=== PATIENT | female | born 1990 | race Caucasian/White ===

== ENCOUNTER → 2020-08-03 | Outpatient (CLI) | payer OTHER, SELFPAY ==
[2020-08-08 14:13] LABS: HPV APTIMA, High Risk Negative (Negative)
== END | disposition home or self-care (01) ==
PROVIDERS: PCP Family Medicine; Referring Provider Obstetrics & Gynecology; Visit Provider Obstetrics & Gynecology
DX: Z12.4 Encounter for screening for malignant neoplasm of cervix (principal)
CPT/HCPCS: 87624; 88175; G0145

== ENCOUNTER → 2021-01-19 12:12 | Outpatient (CLI) | payer OTHER, SELFPAY ==
[2021-01-25 12:08] LABS: Alternaria alternata <0.10 kU/L (Class 0); Aspergillus fumigatus <0.10 kU/L (Class 0); Beef <0.10 kU/L (Class 0); Bermuda Grass <0.10 kU/L (Class 0); Bluegrass, Kentucky 0.53 kU/L (Class I); Cat Hair/Dander, Standard 0.13 kU/L (Class 0/I); Cedar, Mountain <0.10 kU/L (Class 0); Cladosporium herbarum <0.10 kU/L (Class 0); Cockroach, American <0.10 kU/L (Class 0); Corn <0.10 kU/L (Class 0); Dog Epithelia <0.10 kU/L (Class 0); Egg, Whole 0.27 kU/L (Class 0/I); Elm, American White <0.10 kU/L (Class 0); Hazelnut Tree <0.10 kU/L (Class 0); Hickory, White <0.10 kU/L (Class 0); Johnson Grass <0.10 kU/L (Class 0); Maple/Box Elder <0.10 kU/L (Class 0); Milk (Cow) <0.10 kU/L (Class 0); Mucor racemosus <0.10 kU/L (Class 0); Mugwort 0.23 kU/L (Class 0/I); Mulberry, White <0.10 kU/L (Class 0); Nettle <0.10 kU/L (Class 0); Oak, White <0.10 kU/L (Class 0); Peanut <0.10 kU/L (Class 0); Penicillium chrysogen <0.10 kU/L (Class 0); Pigweed, Rough <0.10 kU/L (Class 0); Plantain, English <0.10 kU/L (Class 0); Pork <0.10 kU/L (Class 0); Sheep Sorrel(Dock) <0.10 kU/L (Class 0); Soybean <0.10 kU/L (Class 0); Stemphylium herbarum <0.10 kU/L (Class 0); Sweet Gum <0.10 kU/L (Class 0); Sycamore, American <0.10 kU/L (Class 0); Wheat <0.10 kU/L (Class 0)
[2021-01-25 12:16] LABS: Chocolate <0.10 kU/L (Class 0)
== END ==
PROVIDERS: PCP Family Medicine; Referring Provider Family Medicine; Visit Provider Family Medicine
DX: L50.9 Urticaria, unspecified (principal)
CPT/HCPCS: 36415; 86003; 86005

== ENCOUNTER → 2021-01-29 14:11 | Outpatient (CLI) | payer OTHER, SELFPAY ==
[2021-01-29 13:22] VITALS: BMI 23.8
[2021-01-29 15:32] LABS: NATERA MAILED SPECIMEN
[2021-01-29 17:30] LABS: Amphetamine Urine VISTA NEGATIVE (<1000 ng/mL); Barbiturate Urine VISTA NEGATIVE (< 200 ng/mL); Benzodiazepine Urine VISTA NEGATIVE (< 200 ng/mL); Cocaine Urine VISTA NEGATIVE (< 300 ng/mL); Ecstacy Urine VISTA NEGATIVE (< 500 ng/mL); Methadone Urine VISTA NEGATIVE (< 300 ng/mL); PCP Urine VISTA NEGATIVE (< 25 ng/mL); THC Urine VISTA NEGATIVE (< 50 ng/mL); Vista UDS pH Range 6
[2021-02-01 03:06] LABS: Chlamydia By Nucleic Acid AMP Negative (Negative)
[2021-02-01 14:22] LABS: Gonococcus By Nucleic Acid AMP Negative (Negative)
== END ==
PROVIDERS: PCP Family Medicine; Referring Provider Obstetrics & Gynecology; Visit Provider Obstetrics & Gynecology
DX: Z34.81 Encounter for supervision of other normal pregnancy, first trimester (principal); Z11.3 Encounter for screening for infections with a predominantly sexual mode of transmission
CPT/HCPCS: 36415; 80307; 87086; 87088; 87491; 87591

== ENCOUNTER → 2021-04-16 16:49 | Outpatient (CLI) | payer OTHER, SELFPAY ==
[2021-04-16 17:07] LABS: Absolute Lymphocyte Count 2.43 X10^3/uL (0.83-4.51); Absolute Neutrophil Count 7.7 X10^3/uL (2.0-7.7); Basophil# 0.04 X10^3/uL; Basophil% 0.4 % (0-1); Eosinophil# 0.27 X10^3/uL; Eosinophils% 2.5 % (0-5); Hemoglobin 11.8 g/dL (12.0-15.0); Lymphocyte # 2.43 X10^3/ul (0.83-4.51); Lymphocyte % 22.1 % (19-41); Mean Corp Hgb Conc 32.8 g/dL (32-36); Mean Corpuscular Hgb 29.8 pg (27.0-32.0); Mean Corpuscular Volume 90.9 fL (81-99); Mean Platelet Vol. 10.4 fl (6.2-12.0); Monocyte# 0.49 X10^3/uL; Monocyte% 4.4 % (0-10); NRBC Flagged by Analyzer 0 % (0-5); Neutrophil # 7.72 X10^3/uL (2.7-7.7); Platelet Count 220 K/mm3 (150-450); RBC Distribution Width CV 13.2 % (11.6-14.6); RBC Distribution Width SD 43.8 fl (35.1-43.9); Red Blood Count 3.96 M/mm3 (4.2-5.4)
[2021-04-16 21:30] LABS: Chlamydia Trachomatis by PCR Negative (Negative); Neisserai gonorrhoeae by PCR Negative (Negative); Probe Check PASS; Sample Adequacy Control PASS; Specimen Processing Control PASS
[2021-04-17 09:21] LABS: HIV - WCH Non-Reactive (Nonreactive); Hepatitis B Surface Antigen Non-Reactive (Nonreactive); Hepatitis C Antibody Non-Reactive (Nonreactive); Rubella IgG Reactive (Nonreactive); Syphilis Antibodies Non-reactive
== END ==
PROVIDERS: PCP Family Medicine; Referring Provider Obstetrics & Gynecology; Visit Provider Obstetrics & Gynecology
DX: Z34.90 Encounter for supervision of normal pregnancy, unspecified, unspecified trimester (principal)
CPT/HCPCS: 36415; 85025; 86703; 86762; 86780; 86803; 86850; 86900; 86901; 87340; 87491; 87591

== ENCOUNTER → 2021-06-06 12:52 | Outpatient (CLI) | payer OTHER, SELFPAY ==
[2021-06-06 13:22] LABS: Absolute Neutrophil Count 11.4 X10^3/uL (2.0-7.7); Basophil# 0.05 X10^3/uL; Basophil% 0.4 % (0-1); Eosinophil# 0.32 X10^3/uL; Eosinophils% 2.3 % (0-5); Hematocrit 33.8 % (37-47); Hemoglobin 11.4 g/dL (12.0-15.0); Lymphocyte % 12.7 % (19-41); Mean Corp Hgb Conc 33.7 g/dL (32-36); Mean Corpuscular Hgb 30.6 pg (27.0-32.0); Mean Corpuscular Volume 90.6 fL (81-99); Mean Platelet Vol. 10.1 fl (6.2-12.0); Monocyte# 0.48 X10^3/uL; Monocyte% 3.4 % (0-10); NRBC Flagged by Analyzer 0 % (0-5); Neutrophil # 11.38 X10^3/uL (2.7-7.7); Neutrophil % 80.4 % (47-70); Platelet Count 212 K/mm3 (150-450); RBC Distribution Width CV 12.4 % (11.6-14.6); RBC Distribution Width SD 40.9 fl (35.1-43.9); Red Blood Count 3.73 M/mm3 (4.2-5.4); White Blood Count 14.1 K/mm3 (4.4-11.0)
[2021-06-06 13:42] LABS: Glucose Challenge Gest 1H 50g 130 mg/dL (70-140)
== END ==
PROVIDERS: PCP Family Medicine; Referring Provider Obstetrics & Gynecology; Visit Provider Obstetrics & Gynecology
DX: Z34.90 Encounter for supervision of normal pregnancy, unspecified, unspecified trimester (principal); Z13.1 Encounter for screening for diabetes mellitus
CPT/HCPCS: 36415; 82950; 85025

== ENCOUNTER → 2021-07-25 08:58 | Outpatient (CLI) | payer OTHER, SELFPAY ==
--- NOTE | 2021-07-25 09:02 | US_ITS ---
STUDY: SECOND AND THIRD TRIMESTER OBSTETRICAL ULTRASOUND REASON FOR EXAM: Female, 31 years old growth LMP: 11/12/2020. TECHNIQUE: Transabdominal TECHNICAL QUALITY: Adequate. PRIOR ULTRASOUND: None. FINDINGS: There is a single intrauterine fetus. The fetus is in a cephalic presentation. There is demonstrated cardiac activity with a heart rate of 127 bpm. There is a normal amniotic fluid volume. The largest amniotic fluid pocket measures 3.2 cm. The amniotic fluid index (ISABELA) is 9.9 cm. The placenta is anterior in location and is not low lying. There are Grade 1 placental changes. The cervix measures 3.2 cm in length. The adnexal regions are not visualized. BIOMETRY: BPD: 8.43 cm: 33 weeks, 6 days HC: 31.93 cm: 35 weeks, 6 days AC: 33.11 cm: 37 weeks, 0 days FL: 7.06 cm: 37 weeks, 1 days CI: 76% FL/BPD: 84% FL/HC: FL/AC: 21% HC/AC: 0.96 age by current US: 35 weeks, 4 days. ALYSON by current US: 08/25/2021. Estimated weight: 2921 grams, +/- 438 grams, 52 %. Age by LMP: 36 weeks, 3 days. ALYSON by LMP: 08/19/2021. US/OB Limited With Biometrics IMPRESSION: Single live intrauterine gestation with a mean gestational age of 35 weeks and 4 days. Electronically Signed: Chris Duarte MD at 15:33 EST , Service support ,
== END ==
PROVIDERS: PCP Family Medicine; Referring Provider Obstetrics & Gynecology; Visit Provider Obstetrics & Gynecology
DX: O26.843 Uterine size-date discrepancy, third trimester (principal); Z3A.35 35 weeks gestation of pregnancy
CPT/HCPCS: 76816

== ENCOUNTER → 2021-07-27 | Outpatient (CLI) | payer OTHER, SELFPAY | END | disposition home or self-care (01) | LOC: LABSPEC 16:01 | PROVIDERS: PCP Family Medicine; Visit Provider Obstetrics & Gynecology | DX: Z34.80 Encounter for supervision of other normal pregnancy, unspecified trimester (principal) | CPT/HCPCS: 87081 ==

== ENCOUNTER 2021-08-21 22:35 | Inpatient (IN) | payer OTHER, SELFPAY ==
[2021-08-21 22:14] VITALS: BP 132/80; PULSE 86; TEMP 35.1
[2021-08-21 22:19] VITALS: BMI 28.4
[2021-08-21 23:45] LABS: Absolute Lymphocyte Count 2.91 X10^3/uL (0.83-4.51); Absolute Neutrophil Count 8.8 X10^3/uL (2.0-7.7); Basophil# 0.06 X10^3/uL; Basophil% 0.5 % (0-1); Eosinophil# 0.11 X10^3/uL; Eosinophils% 0.9 % (0-5); Hematocrit 34.3 % (37-47); Hemoglobin 11.2 g/dL (12.0-15.0); Lymphocyte # 2.91 X10^3/ul (0.83-4.51); Lymphocyte % 22.5 % (19-41); Mean Corp Hgb Conc 32.7 g/dL (32-36); Mean Corpuscular Hgb 28.3 pg (27.0-32.0); Mean Corpuscular Volume 86.6 fL (81-99); Mean Platelet Vol. 12.4 fl (6.2-12.0); Monocyte# 0.78 X10^3/uL; NRBC Flagged by Analyzer 0 % (0-5); Neutrophil # 8.78 X10^3/uL (2.7-7.7); Neutrophil % 67.9 % (47-70); Platelet Count 243 K/mm3 (150-450); RBC Distribution Width CV 12.6 % (11.6-14.6); RBC Distribution Width SD 39.5 fl (35.1-43.9); Red Blood Count 3.96 M/mm3 (4.2-5.4); White Blood Count 12.9 K/mm3 (4.4-11.0)
[2021-08-21 23:51] VITALS: PULSE 97; O2SAT 99
[2021-08-21 23:56] VITALS: BP 123/72; PULSE 96
[2021-08-22] VITALS (22 sets, daily range): BP systolic 108–140; BP diastolic 63–89; PULSE 73–100; RESP 16–18; TEMP 36.2–36.7; O2SAT 96–98
[2021-08-22] MEDS: Acetaminophen 500 MG Tablet PO (01:46)
[2021-08-22] MEDS: Ondansetron 4 MG/2 ML Vial IV (03:25)
[2021-08-22] MEDS: 0.9% Saline Lock 10 ML Syringe IV (03:25)
[2021-08-22] MEDS: Oxytocin 30 units/NS 500 ml 30 UNITS/500 ML IV.SOLN 334 UNITS IV (03:57)
--- NOTE | 2021-08-22 04:02 | HP.PCM.OB_ITS ---
HPI - General General Date of Admission: 08/21/21 HPI Narrative ELVIN LIRA, is a 31 F who presents IAL with regualr ctx no vb lof good fm. Maternal Data Information ALYSON Calculator Estimated Delivery Date Method Current WG Current Estimate 08/19/21 Ultrasound #1 40w 3d Other Estimates 08/28/21 LMP (Certain) 39w 1d PFSH PFS Medical History (Updated 08/22/21 @ 04:[address] Augustina Capone MD) Headache Home Medications calcium citrate 315 mg calcium-vitamin D3 6.25 mcg (250 unit) tablet 1 tab PO DAILY 05/15/21 [History Last Taken 08/17/20] magnesium oxide 500 mg capsule 500 mg PO DAILY 05/15/21 [History Last Taken Unknown] Allergy/AdvReac Type Severity Reaction Status Date / Time No Known Allergies Allergy Verified 08/13/21 14:06 Family History Mother Hypertension Father Hypertension Social History adopted: No household members: spouse and children number of children: 2 current occupational status: employed current occupation: [employer] pets and animals: No Smoking Status: Never smoker alcohol intake: never substance use type: does not use caffeine: Yes frequency: 5-6 times per week seatbelt use: always do you feel safe at home: Yes additional social history: - Kristof Patient and are researchers at [employer] History 3 Elective abortions Hx Para 2 Spontaneous abortions Hx # Term Pregnancies Ectopic pregnancies Hx # Pregnancies Multiple births # of living children Past Pregnancies Del. Date Name GA/Weeks Outcome Route Bth Weight Infant Gen Labor Lgth Anesthesia Del Locat Provider FOB 07/22/16 Kathie live - full term 3.2kg Female 30 n one [place] 06/08/18 Nishant 39 live - full term 3.5 kg Male 9 hr no ne [place] Visit Details Expected Delivery Route/Plan discussed IOL by 41-42 Labor Preferences- CB/BF classes: no labor support person: Zach labor intervention preferences: Very concerned with episiotomy:last delivery became infected. Wants oil on perineum. pain management options preferred: epidural if needed. None with last 2 deliveries cut cord/dad catch: yes : yes PP control planned: discussed discussed possible routes of delivery and associated risks: [] special requests: [] Plans covid status: vaccinated flu vaccine: given tdap vaccine: given rhogam: na LARC form signed: yes Problem list reviewed and updated with the most current plan of care details and appropriate orders placed. Relevant counseling for the gestational age provided. Continue routine care and follow up unless otherwise noted in visit notes/problem list details OB Flowsheet Initial Weight: 150 lb Date -?-?-?-?-?-?-?-?-?-?-?-?- EGA Weight BP Urine Prot -?-?-?-?-?-?-?-?-?-?-?-?- Glucose FHR FuHt Pres Dilation -?-?-?-?-?-?-?-?-?-?-?-?- Effaced St Visit Note 01/29/21 -?-?-?-?-?-?-?-?-?-?-?-?- 11w 1d 152 lb (+2 lb) 126/82 -?-?-?-?-?-?-?-?-?-?-?-?- 175 -?-?-?-?-?-?-?-?-?-?-?-?- SM- CRL 3.75 NOT cons with LMP 02/28/21 -?-?-?-?-?-?-?-?-?-?-?-?- 15w 3d 156 lb 4 oz (+6 lb 4 oz) 126/70 Negative -?-?-?-?-?-?-?-?-?-?-?-?- Negative 150 -?-?-?-?-?-?-?-?-?-?-?-?- GP - no cramping or bleeding. Going [place] visit family for at least 4 weeks. Has anatomy scheduled with old at home in case does not come back in time. Will bring records back. 04/16/21 -?-?-?-?-?-?-?-?-?-?-?-?- 22w 1d 104/82 -?-?-?-?-?-?-?-?-?-?-?-?- 150 -?-?-?-?-?-?-?-?-?-?-?-?- SM- had anatomy scan in [facility] will try and obtain report, all normal anatomy per patient. 05/15/21 -?-?-?-?-?-?-?-?-?-?-?-?- 26w 2d 169 lb (+19 lb) 112/78 Negative -?-?-?-?-?-?-?-?-?-?-?-?- Negative 140 -?-?-?-?-?-?-?-?-?-?-?-?- SM- no vb wendy phillips had anatomy us nl in [facility], report will be scanned in but in different language 06/06/21 -?-?-?-?-?-?-?-?-?-?-?-?- 29w 3d 169 lb 4 oz (+19 lb 4 oz) 118/76 Negative -?-?-?-?-?-?-?-?-?-?-?-?- Negative 146 29 -?-?-?-?-?-?-?-?-?-?-?-?- MH-No VB, LOF. G ood FM. 28 wk labs. Has cold sx today/neg covid. Declines tdap and flu vaccines today but will consider for next visit 06/22/21 -?-?-?-?-?-?-?-?-?-?-?-?- 31w 5d 170 lb (+20 lb) 104/89 -?-?-?-?-?-?-?-?-?-?-?-?- 140 32 -?-?-?-?-?-?-?-?-?-?-?-?- SM- no vb lof go od fm no reuglar ctx 07/03/21 -?-?-?-?-?-?-?-?-?-?-?-?- 33w 2d 173 lb (+23 lb) 120/84 120/84 Negative -?-?-?-?-?-?-?-?-?-?-?-?- Negative 147 32 -?-?-?-?-?-?-?-?-?-?-?-?- MH-No VB, LOF. G ood FM. Tdap and flu vaccines given. 07/19/21 -?-?-?-?-?-?-?-?-?-?-?-?- 35w 4d 177 lb 4 oz (+27 lb 4 oz) 128/88 Negative -?-?-?-?-?-?-?-?-?-?-?-?- Negative 140 36 -?-?-?-?-?-?-?-?-?-?-?-?- SM- no vb lof go od fm no reg ctx 07/27/21 -?-?-?-?-?-?-?-?-?-?-?-?- 36w 5d 181 lb 4 oz (+31 lb 4 oz) 116/68 Negative -?-?-?-?-?-?-?-?-?-?-?-?- Negative 145 32 -?-?-?-?-?-?-?-?-?-?-?-?- JV- ultrasound t his week showed growth 55th% and isabela 10. will reassess next visit and if still measures small will do office ISABELA. 08/03/21 -?-?-?-?-?-?--?-?-?-?-?-?- 37w 5d 180 lb (+30 lb) 122/60 Negative -?-?-?-?-?-?-?-?-?-?-?-?- Negative 140 35 -?-?-?-?-?-?-?-?-?-?-?-?- SM- no vb lof go od fm no regular ctx 08/09/21 -?-?-?-?-?-?-?-?-?-?-?-?- 38w 4d 184 lb 6 oz (+34 lb 6 oz) Negative -?-?-?-?-?-?-?-?-?-?-?-?- Negative 142 38 -?-?-?-?-?-?-?-?-?-?-?-?- JV- no lof, vagi nal bleeding, or dec fm. GBS neg. JV- no lof, vaginal bleeding , or dec fm. GBS neg. declines vaginal exam 08/13/21 -?-?-?-?-?-?-?-?-?-?-?-?- 39w 1d 183 lb (+33 lb) 118/66 Negative -?-?-?-?-?-?-?-?-?-?-?-?- Negative 140 39 -?-?-?-?-?-?-?-?-?-?-?-?- SM- no vb lof go od fm no reuglar ctx 08/21/21 -?-?-?-?-?-?-?-?-?-?-?-?- 40w 2d 181 lb 6 oz (+31 lb 6 oz) 132/80 123/72 122/74 115/74 126/82 140/89 -?-?-?-?-?-?-?-?-?-?-?-?- -?-?-?-?-?-?-?-?-?-?-?-?- NST FHR Rate Baby A Baseline: 140 Variability:: Moderate Accelerations:: 15 x 15 Decelerations:: None NST Reactive:: Yes FHR Category:: Category I Uterine Activity:: q3-5 ROS Constitutional Constitutional: Reports systems reviewed and no addt'l complaints, except as documented ENT HEENT: Reports systems reviewed and no addt'l complaints, except as documented Cardiovascular Cardiovascular: Reports systems reviewed and no addt'l complaints, except as documented Respiratory/Chest Respiratory/Chest: Reports systems reviewed and no addt'l complaints, except as documented Gastrointestinal Gastrointestinal: Reports systems reviewed and no addt'l complaints, except as documented and nausea; Denies abdominal pain Genitourinary Genitourinary: Reports systems reviewed and no addt'l complaints, except as documented, contractions Details: present and frequency (regular ) and movement Details: present Musculoskeletal Musculoskeletal: Reports systems reviewed and no addt'l complaints, except as documented Integumentary Integumentary: Reports as per HPI Neurologic Neurologic: Reports systems reviewed and no addt'l complaints, except as documented Endocrine Endocrinology: Reports systems reviewed and no addt'l complaints, except as documented Vital Signs Vital Signs Vital Signs: 08/21/21 22:14 08/21/21 23:51 08/21/21 23:56 Temperature 95.2 F L Pulse Rate 86 97 96 Blood Pressure 132/80 H 123/72 H BP Systolic 132 123 BP Diastolic 80 72 Pulse Ox 99 08/22/21 00:21 08/22/21 00:51 08/22/21 00:54 Temperature 97.2 F L Pulse Rate 100 73 73 Blood Pressure 122/74 H BP Systolic 122 BP Diastolic 74 Pulse Ox 97 08/22/21 01:24 08/22/21 02:00 08/22/21 02:51 Temperature 98.1 F Pulse Rate 100 100 98 Blood Pressure 115/74 126/82 H BP Systolic 115 126 BP Diastolic 74 82 Pulse Ox 98 08/22/21 03:26 08/22/21 04:02 Temperature Pulse Rate 92 96 Blood Pressure 140/89 H BP Systolic 140 BP Diastolic 89 Pulse Ox 96 Weight Weight: 181 lb 6 oz Body Mass Index (BMI) 28.4 Physical Exam Const alert, oriented x3 and healthy appearing Constitutional Narrative: uncomfortable with contractions HEENT normocephalic and moist oral mucous membranes Head and Scalp: atraumatic Neck full ROM, no lymphadenopathy, supple and thyroid normal General: trachea midline Thyroid: thyroid normal Lymph Lymphatic: no lymphadenopathy noted Chest inspection of chest normal Resp normal respiratory effort Cardio regular rate GI normal to inspection, nondistended, normoactive bowel sounds, soft to palpation and non-tender Inspection: gravid external exam normal Bimanual Exam - Vag & Uterus: uterus non-tender Manual OB Exam: estimated gestational size appropriate, presentation cephalic, dilated, effaced and station Extremity normal to inspection General Extremity: Negative for edema Skin no rashes or lesions noted Neuro deep tendon reflexes 2+ bilaterally Motor Exam: strength 5/5 throughout and clonus absent Psych mental status grossly normal Labs Labs Labs: Blood Type A POSITIVE Antibody Screen NEGATIVE Hct 34.3 % (37-47) L Hgb 11.2 g/dL (12.0-15.0) L Obstetrics US Syphilis Total Ab Non-reactive Rubella IgG Antibody Reactive (Nonreactive) Hep Bs Antigen Non-Reactive (Nonreactive) Neisseria gonorrhoeae DNA (YUKO) Negative (Negative) HIV 1&2 Antibody Non-Reactive (Nonreactive) C.trachomatis DNA (PCR) Negative (Negative) Glucose 1 Hr 50 gm 130 mg/dL (70-140) Assessment & Plan (1) : QUALIFIERS: Weeks of gestation: 37 weeks Qualified Code(s): Z3A.37 - 37 weeks gestation of COMMENT: 07/25 growth US nl. carrier screening declined , dec afp screen, NIPT low risk, nl anatomy (done in [facility]) (2) Supervision of other normal : COMMENT: PRR ALYSON 08/28/21, Pedro salcedo PC:Nishant Vázquez Spouse: Zach (3) Vaginal delivery: COMMENT: IAL 40 SM denisse Vasquez PLAN: expectant management, minimal intervention preferred
--- NOTE | 2021-08-22 04:04 | EX.PCM.OBRPT ---
Maternal Data Information ALYSON Calculator Estimated Delivery Date Method Current WG Current Estimate 08/19/21 Ultrasound #1 40w 3d Other Estimates 08/28/21 LMP (Certain) 39w 1d Vaginal Delivery Operative Information Date of Procedure: 08/22/21 Pre-Operative Diagnosis: IAL Post-Operative Diagnosis: same Surgery / Procedure Performed: Spontaneous Vaginal Delivery Type of Anesthesia: None Special Medications: none Estimated Blood Loss: 100 Fluids Replaced: crystalloid Findings Description of Procedure: Patient began pushing and delivered the head in the JEANA presentation. The head was delivered atraumatically . The anterior and posterior shoulders delivered without complication followed by the rest of the and the infant was placed on the maternal abdomen. Delayed cord clamping was employed for approximately 60 seconds. Cord was clamped and cut and gentle traction was applied to the cord and the placenta delivered spontaneously immediately following it was noted to be intact with three-vessel cord. The perineum and vagina were inspected and noted to have no laceration. EBL was 100 cc. Patient and infant tolerated delivery well. Presentation: JEANA Amniotic Membrane Rupture Type: Artificial Amniotic Fluid Description: Clear Placental Delivery Description: Spontaneous Placenta Disposition: [facility] Cord Vessel Description: 3 Vessels Cord Entanglement: None Delayed Cord Clamping: Yes Post Vaginal Delivery Medications Given After Delivery: IV Pitocin Episiotomy Description: None Laceration: None Complication Complications: None Procedures Urinary/Genital [id number]: [id number] Vaginal Delivery [facility]
--- NOTE | 2021-08-22 04:05 | PCM.DC ---
Documented by User: Dr. Augustina Capone MD 08/22/21 04:05 Discharge Instructions Diet Discharge Diet: No restrictions Activity Discharge Activity: Return to Normal Activity, May Not Drive (while taking narcotic pain medications.) and May Shower May resume sexual activity in: 4-6 weeks Dressing / Incision Call your doctor if your incision/area has: Continuous Slow Oozing, Sudden Increased Bleeding, Increased Pain/ Swelling, Increased Redness and Foul Smelling Discharge Follow Up Care Please Follow Up With: Augustina Capone MD When: Call [phone] to make an appointment with your doctor in 6 weeks. If you had elevated blood pressure or 4th degree laceration, you will need to be seen in 2 weeks. Test Results: Test results from this visit will be discussed in further detail at your follow-up appointment, if applicable. Discharge Plan Admission Admit Date/Time: 08/21/21 22:35 Attending Provider: Augustina Capone Primary Care Provider: Sonido Hudson Discharge Orders/Prescriptions Prescriptions: New ibuprofen 800 mg tablet 800 mg PO Q8H PRN (Reason: pain) 7 Days Qty: 30 RF: 0 docusate sodium [Colace] 100 mg capsule 100 mg PO DAILY 14 Days Qty: 14 RF: 0 No Action magnesium oxide 500 mg capsule 500 mg PO DAILY RF: 0 calcium citrate-vitamin D3 [Citracal + D Maximum] 315 mg-6.25 mcg (250 unit) tablet 1 tab PO DAILY RF: 0 Referrals / Follow Up: Sonido Hudson MD [Primary Care Provider] - Disposition Disposition (needs filled in before D/C Order can be placed): Home, Self Care Documented by User: Dr. Bernadette Le DO 08/23/21 08:12 Discharge Plan Admission Admit Date/Time: 08/21/21 22:35 Attending Provider: Augustina Capone Primary Care Provider: Sonido Hudson Discharge Orders/Prescriptions Prescriptions: New ibuprofen 800 mg tablet 800 mg PO Q8H PRN (Reason: pain) 7 Days Qty: 30 RF: 0 docusate sodium [Colace] 100 mg capsule 100 mg PO DAILY 14 Days Qty: 14 RF: 0 No Action magnesium oxide 500 mg capsule 500 mg PO DAILY RF: 0 calcium citrate-vitamin D3 [Citracal + D Maximum] 315 mg-6.25 mcg (250 unit) tablet 1 tab PO DAILY RF: 0 Referrals / Follow Up: Sonido Hudson MD [Primary Care Provider] - Disposition Disposition (needs filled in before D/C Order can be placed): Home, Self Care
[2021-08-22] MEDS: Naproxen 500 MG Tablet PO ×2 (05:07→15:19)
[2021-08-22] MEDS: Acetaminophen 500 MG Tablet 1000 MG PO (08:21)
[2021-08-23 04:34] VITALS: BP 120/78; PULSE 81; RESP 18; TEMP 36.1
[2021-08-23] MEDS: Acetaminophen 500 MG Tablet 1000 MG PO (04:40)
[2021-08-23 08:00] VITALS: BP 111/80; PULSE 77; RESP 16; TEMP 36.1
--- NOTE | 2021-08-23 08:13 | PCM.PN.OB ---
Subjective Subjective Patient doing well without complaints. Tolerating PO. Ambulating and voiding without difficulty. Feeding well. Denies chest pain, shortness of breath, calf pain/swelling, fevers, chills, lightheadedness. Objective Data Objective Data Vital Signs: Vital Signs Temp Pulse Resp BP Pulse Ox 97 F L 81 18 120/78 98 08/23/21 04:34 08/23/21 04:34 08/23/21 04:34 08/23/21 04:34 08/22/21 17:00 Oxygen Delivery Method Room Air Weight: 181 lb 6 oz Body Mass Index (BMI) 28.4 Intake & Output: Intake and Output for Last 24 Hours 08/21/21 08/22/21 08/23/21 23:59 23:59 23:59 Intake Total 500 / 500 Output Total 200 / 200 Balance 300 / 300 Lab / Micro Data Result Diagrams: 08/21/21 23:00 Micro: Microbiology 08/21/21 23:00 Nasal Secretion SARS-CoV-2 Antigen (Rapid) - Final ROS Constitutional Constitutional: Denies chills, fatigue, fever(s), poor appetite or weakness Eyes Eyes: Denies blurry vision, change in vision, seeing flashes or spots in vision ENT HEENT: Denies dizziness, headache(s), loss taste/smell or sore throat Cardiovascular Cardiovascular: Denies chest pain, dizziness, dyspnea, irregular heart rhythm, palpitations or rapid heart rate Respiratory/Chest Respiratory/Chest: Denies chest tightness, cough, dyspnea or breast pain Gastrointestinal Gastrointestinal: Denies abdominal pain, constipation or vomiting Genitourinary Genitourinary: Denies dysuria or flank pain Musculoskeletal Musculoskeletal: Denies difficulty walking, joint pain, limited range of motion or numbness Neurologic Neurologic: Denies abnormal movements, abnormal speech, dizziness, numbness, seizure-like activity or syncope Psychiatric Psychiatric: Denies anxiety, behavioral changes, change in appetite, confusion, depression or suicidal thoughts Physical Exam Const alert, oriented x3 and no apparent distress General Appearance: cooperative and comfortable Resp normal respiratory effort Cardio regular rate GI normal to inspection, nondistended, normoactive bowel sounds GI Narrative: uterus is firm below umbilicus Palpation: soft Bimanual Exam - Adnexa, Other: Negative for cul-de-sac fullness Back/Spine no CVA tenderness and thoraco-lumbar ROM normal Extremity normal to inspection, no clubbing, cyanosis or edema, no calf tenderness and no pedal edema Psych mental status grossly normal, thought process normal, cooperative, affect normal, speech normal, activity/motor behavior normal, denies homicidal ideation and denies suicidal ideation Assessment & Plan (1) Vaginal delivery: COMMENT: IAL 40 SM denisse Vasquez (2) Supervision of other normal : COMMENT: PRR ALYSON 08/28/21, boy, Pedro PC:Nishant Vázquez Spouse: Zach (3) : QUALIFIERS: Weeks of gestation: 37 weeks Qualified Code(s): Z3A.37 - 37 weeks gestation of COMMENT: 07/25 growth US nl. carrier screening declined , dec afp screen, NIPT low risk, nl anatomy (done in [facility]) PLAN: s/p PPD # 1 1. routine post delivery care 2. breast feeding- support given 3. rh positive 4. rubella immune 5. patient wants to go home today. - follow up in 6 weeks
== END 2021-08-23 12:00 | disposition home or self-care (01) | DRG 807 ==
LOC: WPOUT 22:37 → WP 22:37
PROVIDERS: Admitting Provider Obstetrics & Gynecology; PCP Family Medicine; Visit Provider Obstetrics & Gynecology
DX: O80 Encounter for full-term uncomplicated delivery (principal); Z37.0 Single live birth; Z3A.40 40 weeks gestation of pregnancy
CPT/HCPCS: 59025; 59050; 85025; 86850; 86900; 86901; 87426; 99218; A4216; G0378; J2405